=== PATIENT | female | born 1970 | race Caucasian/White ===

== ENCOUNTER 2017-01-07 06:31 | Emergency (ER) | payer BC ==
--- NOTE | 2017-01-07 06:54 | Emergency Department Record ---
History of Present Illness - General Chief complaint: ENT Stated complaint: SORE THROAT Time Seen by Provider: 01/07/17 06:45 Source: Patient Mode of Arrival: Ambulatory Limitations: No limitations - History of Present Illness Initial comments: The patient is here due to a one day hx of a ST. She states it was scratchy yesterday but got worse this morning. She is concerned she may have Strep. The patient denies any fever, cough, voice changes, ROGERS, or ear pain. MD complaint: Sore throat Onset/Timin -: Days(s) Location: Throat Quality: Aching Consistency: Constant Improves with: None Worsens with: Swallowing Associated Symptoms: Sore throat - Related Data Allergies Allergy/AdvReac Type Severity Reaction Status Date / Time bee pollen Allergy Severe HIVES Unverified 12/25/16 08:24 iodine Allergy Severe HIVES Unverified 12/25/16 08:24 shellfish derived Allergy Severe HIVES Unverified 12/25/16 08:24 onion Allergy Intermediate HIVES Unverified 12/25/16 08:24 Travel Screening - Travel/Exposure Within Last 30 Days Have you traveled within the last 30 days?: No Review of Systems Constitutional: Denies: Chills, Fever Past Medical History - SOCIAL HISTORY Smoking Status: Never smoker Alcohol Use: Rare Drug Use: None - RESPIRATORY Hx Respiratory Disorders: Yes Hx Asthma: Yes - CARDIOVASCULAR Hx Cardio Disorders: Yes Hx Heart Attack: Yes Comment:: Murmur - NEURO Hx Neuro Disorders: No - GI Hx GI Disorders: Yes Comment:: Esophageal Ulcers - Hx Genitourinary Disorders: No - ENDOCRINE Hx Endocrine Disorders: Yes Hx Diabetes: Yes (DM2) - MUSCULOSKELETAL Hx Musculoskeletal Disorders: No - PSYCH Hx Psych Problems: Yes Hx Anxiety: Yes Hx Depression: Yes - HEMATOLOGY/ONCOLOGY Hx Hematology/Oncology Disorders: Yes Hx Cancer: Yes (Uterine) Hx Chemotherapy: No Hx Radiation Therapy: No Family Medical History Any Significant Family History?: Yes Hx Cancer: Mother Hx Diabetes: Mother Physical Exam - General General Appearance: Alert, Oriented x3, Cooperative, No acute distress - Head Head exam: Atraumatic, Normocephalic, Normal inspection - Eye Eye exam: Normal appearance, PERRL - ENT Throat exam: Tonsillar erythema. negative: Normal inspection, Tonsillomegaly, Tonsillar exudate, R peritonsillar mass, L peritonsillar mass - Neck Neck exam: Normal inspection, Full ROM. negative: Lymphadenopathy, Meningismus , Tenderness - Respiratory Respiratory exam: Normal lung sounds bilaterally. negative: Respiratory distress - Cardiovascular Cardiovascular Exam: Regular rate, Normal rhythm, Normal heart sounds Course Vital Signs 01/07/17 06:35 Temperature 98.8 F Pulse Rate [ 93 H Pulse Ox Probe] Respiratory 16 Rate Blood Pressure 157/106 [Left Arm] Pulse Ox 97 - Reevaluation(s) Reevaluation #1: I explained to the patient it appears she has a viral sore throat. She is to use Tylenol for pain and see her PCP if not better in 2 days. 01/07/17 06:52 01/07/17 07:10 Medical Decision Making - Data Complexity MDM Data: Labs Ordered and/or Reviewed (Strep: Neg.) - Lab Data Lab Results 01/07/17 Range/Units 06:34 Group A Strep Screen Negative (NEGATIVE) Disposition Disposition: Discharge Clinical Impression: Viral pharyngitis Disposition: Home, Self-Care Condition: (1) Good Instructions: Pharyngitis (ED) Additional Instructions: Please use Tylenol for pain. Please see your PCP if not better in 1-2 days. Return to the ER if worse. Please also F/U with your PCP to recheck your blood pressure. Please take Benadryl for swelling also if needed. Forms: Patient Portal Access Time of Disposition: 06:54 Quality - Quality Measures Quality Measures: N/A - Blood Pressure Screening View Details: Yes Does Patient Have Any of the Following: No Blood Pressure Classification: Hypertensive Reading Systolic Measurement: 157 Diastolic Measurement: 106 Screening for High Blood Pressure: < Pre-Hypertensive BP, F/U Documented > [ G8950] Pre-Hypertensive Follow-up Interventions: Referral to alternative/primary care provider.
[2017-01-07] MEDS: ACETAMINOPHEN 325 MG TAB PO ONE (07:02)
== END 2017-01-07 07:05 | disposition home or self-care (01) ==
LOC: ER 06:31
DX: J02.9 Acute pharyngitis, unspecified (principal)
CPT/HCPCS: 87880; 99282

== ENCOUNTER 2017-01-18 07:56 | Day surgery (SDC) | payer BC ==
[2017-01-18] MEDS ORDERED: LIDOCAINE 2% MDV (20MG/ML) 20ML VIAL IV ONE (14:00)
[2017-01-18] MEDS ORDERED: PROPOFOL 10 MG/ML VIAL IV ONE (14:00)
[2017-01-18] MEDS ORDERED: FENTANYL PF 100MCG/2ML VIAL IV ONE (14:00)
--- NOTE | 2017-01-23 17:31 | Operative Note ---
DATE OF SURGERY: 01/18/2017 OPERATION: ESOPHAGOGASTRODUODENOSCOPY with photo. PREOPERATIVE DIAGNOSIS: Chronic heartburn. POSTOPERATIVE DIAGNOSES: 1. GE junction erosion. 2. Moderate retained liquid in the stomach, rule out gastroparesis. PROCEDURE: After informed consent was obtained from the patient, she was placed in the left lateral decubitus position in the endoscopy suite, sedated and monitored by the department of anesthesia. A well-lubricated ARC400 gastroscope was placed in the posterior oropharynx and under direct visualization passed to the proximal esophagus. The endoscope was advanced through the proximal, mid, and distal esophagus. The GE junction demonstrated a small erosion. The remainder of the esophagus was normal. There was greater than the expected amount of retained bile and acid in the gastric fundus. There was a small amount of debris noted as well. The gastric body and antrum as well as the pylorus, duodenal bulb, and sweep were unremarkable. J-turn views of the proximal stomach were unremarkable. The endoscope was then straightened and retracted from the patient with no new findings or abnormalities identified. RECOMMENDATIONS: I will have the patient continue her current b.i.d. proton pump inhibitor. I will check a gastric emptying study to determine if there is any evidence of gastric dysmotility which may be responsible for some of her reflux symptoms. As always, thank you for allowing me to participate in the healthcare of your patients. CC: Dr. Boyer at cardiology in [facility] [place]
== END 2017-01-18 10:14 | disposition home or self-care (01) ==
LOC: HOP 07:56
PROVIDERS: ATTEND Internal Medicine Gastroenterology
DX: K22.10 Ulcer of esophagus without bleeding (principal); R12 Heartburn; E11.9 Type 2 diabetes mellitus without complications; E78.00 Pure hypercholesterolemia, unspecified
CPT/HCPCS: 43235; 00740; J3010

== ENCOUNTER 2018-08-14 16:47 | Emergency (ER) | payer BC ==
[2018-08-14] MEDS ORDERED: HUMULIN R 100 UNIT/ML VIAL IV ONE (17:03)
[2018-08-14] MEDS ORDERED: HUMULIN R 100 UNIT/ML VIAL SC ONE (17:15)
[2018-08-14 17:22] LABS: BASO % 0.8 % (0-6); EOS % 3.1 % (0-6); HEMATOCRIT 42.8 % (35.0-47.0); HEMOGLOBIN 14.9 gm/dl (11.6-16.0); LYMPH % 27.1 % (16-45); MEAN CELL VOLUME 83.9 fl (81-97); MEAN CORPUSCULAR HEMOGLOBIN 29.2 pg (27-33); MEAN CORPUSCULAR HGB CONC 34.8 g/dl (32-36); MEAN PLATELET VOLUME 10.7 fl (7.4-10.4); PLATELET COUNT 294 K/uL (130-400); RED CELL DISTRIBUTION WIDTH 12.7 % (11.5-14.5); WHITE BLOOD COUNT W/O DIFF 7.5 K/uL (4.2-12.2)
--- NOTE | 2018-08-14 17:35 | Emergency Department Record ---
History of Present Illness - General Chief complaint: Hypergylcemia Stated complaint: HIGH BLOOD SUGAR Time Seen by Provider: 08/14/18 16:56 Source: Patient, RN notes reviewed Mode of Arrival: Wheelchair - History of Present Illness Initial comments: patient has numbness in the left hand and patient to ready care and blood sugar checked and it was over 500 and she uses insulin 40 units at night and no vomiting and her neck hurts on the left side of her neck. [employer] is equal bilaterally. No drift of leg weakness. Onset/Timin -: Week(s) - [place] Coma Scale Eye Response: (4) Open spontaneously Motor Response: (6) Obeys commands Verbal Response: (5) Oriented [place] Total: 15 - Related Data Allergies Allergy/AdvReac Type Severity Reaction Status Date / Time bee pollen Allergy Severe HIVES Unverified 08/14/18 16:11 iodine Allergy Severe HIVES Unverified 08/14/18 16:11 shellfish derived Allergy Severe HIVES Unverified 08/14/18 16:11 cat dander Allergy Intermediate SWOLLEN Unverified 08/14/18 16:11 EYES onion Allergy Intermediate HIVES Unverified 08/14/18 16:11 lopez vinayak Allergy Mild PT UNSURE Uncoded 08/14/18 16:52 OF REACTION Travel Screening - Travel/Exposure Within Last 30 Days Have you traveled within the last 30 days?: No - Travel/Exposure Within Last Year Have you traveled outside the [place] in the last year?: No - Additonal Travel Details Have you been exposed to anyone with a communicable illness?: No - Travel Symptoms Symptom Screening: None Review of Systems Reviewed: No additional complaints except as noted below Constitutional: Reports: As per HPI. Denies: Chills, Fever, Malaise, Night sweats, Weakness, Weight change Eyes: Reports: As per HPI. Denies: Eye discharge, Eye pain, Photophobia, Vision change ENT: Reports: As per HPI. Denies: Congestion, Dental pain, Ear pain, Epistaxis , Hearing loss, Throat pain Respiratory: Reports: As per HPI. Denies: Cough, Dyspnea, Hemoptysis, Stridor, Wheezes Cardiovascular: Reports: As per HPI. Denies: Arrhythmia, Chest pain, Dyspnea on exertion, Edema, Murmurs, Orthopnea, Palpitations, Paroxysmal nocturnal dyspnea, Rheumatic Fever, Syncope Endocrine: Reports: As per HPI. Denies: Fatigue, Heat or cold intolerance, Polydipsia, Polyuria Gastrointestinal: Reports: As per HPI. Denies: Abdominal pain, Constipation, Diarrhea, Hematemesis, Hematochezia, Melena, Nausea, Vomiting Genitourinary: Reports: As per HPI. Denies: Abnormal menses, Discharge, Dyspareunia, Dysuria, Frequency, Hematuria, Incontinence, Retention, Urgency Musculoskeletal: Reports: As per HPI. Denies: Arthralgia, Back pain, Gout, Joint swelling, Myalgia, Neck pain Skin: Reports: As per HPI. Denies: Bruising, Change in color, Change in hair/ nails, Lesions, Pruritus, Rash Neurological: Reports: As per HPI, Numbness (left hand, she also has chronic leg numbness because of her diabetes). Denies: Abnormal gait, Confusion, Headache, Paresthesias, Seizure, Tingling, Tremors, Vertigo, Weakness Psychiatric: Reports: As per HPI. Denies: Anxiety, Auditory hallucinations, Depression, Homicidal thoughts, Suicidal thoughts, Visual hallucinations Hematological/Lymphatic: Reports: As per HPI. Denies: Anemia, Blood Clots, Easy bleeding, Easy bruising, Swollen glands Past Medical History - SOCIAL HISTORY Smoking Status: Never smoker Alcohol Use: Rare Drug Use: None - RESPIRATORY Hx Respiratory Disorders: Yes Hx Asthma: Yes - CARDIOVASCULAR Hx Cardio Disorders: Yes Hx Heart Attack: Yes Comment:: Murmur - NEURO Hx Neuro Disorders: No - GI Hx GI Disorders: Yes Comment:: Esophageal Ulcers - Hx Genitourinary Disorders: No - ENDOCRINE Hx Endocrine Disorders: Yes Hx Diabetes: Yes (DM2) - MUSCULOSKELETAL Hx Musculoskeletal Disorders: No - PSYCH Hx Psych Problems: Yes Hx Anxiety: Yes Hx Depression: Yes - HEMATOLOGY/ONCOLOGY Hx Hematology/Oncology Disorders: Yes Hx Cancer: Yes (Uterine) Hx Chemotherapy: No Hx Radiation Therapy: No Family Medical History Any Significant Family History?: Yes Hx Cancer: Mother Hx Diabetes: Mother Physical Exam - General General Appearance: Alert, Oriented x3, Cooperative, No acute distress - Head Head exam: Normal inspection - Eye Eye exam: Normal appearance, PERRL Pupils: Normal accommodation - ENT ENT exam: Normal exam, Mucous membranes moist, Normal external ear exam, Normal orophraynx, TM's normal bilaterally Ear exam: Normal external inspection. negative: External canal tenderness Nasal Exam: Normal inspection. negative: Discharge, Sinus tenderness Mouth exam: Normal external inspection, Tongue normal Teeth exam: Normal inspection. negative: Dental caries Throat exam: Normal inspection. negative: Tonsillar erythema, Tonsillar exudate - Neck Neck exam: Normal inspection, Full ROM. negative: Tenderness - Respiratory Respiratory exam: Normal lung sounds bilaterally. negative: Respiratory distress - Cardiovascular Cardiovascular Exam: Regular rate, Normal rhythm, Normal heart sounds - GI/Abdominal GI/Abdominal exam: Soft, Normal bowel sounds. negative: Tenderness - Rectal Rectal exam: Deferred - exam: Deferred - Extremities Extremities exam: Normal inspection, Full ROM, Normal capillary refill. negative: Tenderness - Back Back exam: Reports: Normal inspection, Full ROM. Denies: Muscle spasm, Rash noted, Tenderness - Neurological Neurological exam: Alert, Normal gait, Oriented X3, Reflexes normal - Psychiatric Psychiatric exam: Normal affect, Normal mood - Skin Skin exam: Dry, Intact, Normal color, Warm Course Vital Signs 08/14/18 16:55 Temperature 98.1 F Pulse Rate 80 Respiratory 20 Rate Blood Pressure 152/87 Pulse Ox 96 Medical Decision Making - Data Complexity MDM Data: Labs Ordered and/or Reviewed (glucose 555 , acetone negative), X-Ray Ordered and/or Reviewed (ct head negative) - Lab Data Result diagrams: 08/14/18 16:55 08/14/18 16:55 Lab Results 08/14/18 Range/Units 16:55 WBC 7.5 (4.2-12.2) K/uL RBC 5.10 (3.80-5.40) M/uL Hgb 14.9 (11.6-16.0) gm/dl Hct 42.8 (35.0-47.0) % MCV 83.9 (81-97) fl MCH 29.2 (27-33) pg MCHC 34.8 (32-36) g/dl RDW 12.7 (11.5-14.5) % Plt Count 294 (130-400) K/uL MPV 10.7 H (7.4-10.4) fl Gran % 62.0 (47-80) % Lymphocytes % 27.1 (16-45) % Monocytes % 7.0 (0-9) % Eosinophils % 3.1 (0-6) % Basophils % 0.8 (0-6) % Disposition Clinical Impression: Hyperglycemia, Diabetes Cervical strain, acute Qualifiers: Encounter type: initial encounter Qualified Code(s): S16.1XXA - Strain of muscle, fascia and tendon at neck level, initial encounter Radiculopathy Qualifiers: Spinal region: cervical Qualified Code(s): M54.12 - Radiculopathy, cervical region Disposition: Home, Self-Care Condition: (1) Good Instructions: Cervical Strain (ED), Cervical Radiculopathy (ED) Additional Instructions: increase insulin by 5 units tomorrow motrin 400 mg three times a day for one week follow up with family provider in 2 to 6 days low heat to neck three times a daytoday check glucose twice a day and write it down off work Forms: Patient Portal Access Time of Disposition: 17:40 Quality - Quality Measures Quality Measures: N/A - Blood Pressure Screening Does Patient Have Any of the Following: No Blood Pressure Classification: Pre-Hypertensive BP Reading Systolic Measurement: 152 Diastolic Measurement: 87 Screening for High Blood Pressure: < Pre-Hypertensive BP, F/U Documented > [ G8950] Pre-Hypertensive Follow-up Interventions: Referral to alternative/primary care provider.
[2018-08-14 17:39] LABS: BLOOD UREA NITROGEN 13 mg/dL (6-20); CREATININE 0.8 mg/dL (0.5-0.9); EST GLOMERULAR FILTRATION RATE > 60 mL/min
[2018-08-14 17:40] LABS: TOTAL PROTEIN 7.3 g/dL (6.6-8.7)
[2018-08-14 17:44] LABS: ALBUMIN 4.1 g/dL (4.0-5.0); ALKALINE PHOSPHATASE 100 U/L (35-104); ALT/SGPT 28 U/L (<33); AST/SGOT 17 U/L (10.0-35.0)
[2018-08-14 17:50] LABS: ACETONE,SERUM NEGATIVE (NEGATIVE)
[2018-08-14 17:55] LABS: ALB/GLOB RATIO 1.3 (1.1-1.8); GLUCOSE,RANDOM 555 mg/dL (74-109)
[2018-08-14 18:16] LABS: URINE APPEARANCE CLEAR; URINE BILIRUBIN NEGATIVE (NEGATIVE); URINE BLOOD NEGATIVE (NEGATIVE); URINE COLOR YELLOW; URINE KETONE NEGATIVE (NEGATIVE); URINE LEUKOCYTE ESTERASE NEGATIVE (NEGATIVE); URINE NITRITE NEGATIVE (NEGATIVE); URINE PROTEIN NEGATIVE (NEGATIVE); URINE UROBILINOGEN 0.2 E.U./dL (0.20 - 1.00)
[2018-08-14 18:17] LABS: URINE GLUCOSE (UA) >=1000 mg/dL (NEGATIVE)
--- NOTE | 2018-08-16 12:35 | CT SCAN REPORT ---
EXAM: CT OF THE HEAD WITHOUT CONTRAST HISTORY: NUMBNESS IN THE LEFT HAND TIMES ONE WEEK. TECHNIQUE: Noncontrast CT of the head was obtained. FINDINGS: The brain volume is normal. There is no hemorrhage, mass effect, midline shift or acute transcortical infarction. No extraaxial fluid collections are seen. The ventricles and basal cisterns are preserved. IMPRESSION: NORMAL CT SCAN OF THE BRAIN. JOB NUMBER: [id number] MTDD
== END 2018-08-14 19:11 | disposition home or self-care (01) ==
LOC: ER 16:47
DX: S16.1XXA Strain of muscle, fascia and tendon at neck level, initial encounter (principal); M54.12 Radiculopathy, cervical region; E11.65 Type 2 diabetes mellitus with hyperglycemia; X58.XXXA Exposure to other specified factors, initial encounter; Z79.4 Long term (current) use of insulin; I25.2 Old myocardial infarction; F17.210 Nicotine dependence, cigarettes, uncomplicated
CPT/HCPCS: 99284 ×2; 96374; 85025; 85730; 80053; 36416; 82009; 82948; 81003; 84484; 70450; 93005; 93010; J1815

== ENCOUNTER 2018-11-13 14:10 | Emergency (ER) | payer BC ==
--- NOTE | 2018-11-13 16:10 | Emergency Department Record ---
History of Present Illness - General Chief complaint: Abscess Stated complaint: GROWTH ON GROIN Time Seen by Provider: 11/13/18 16:06 Mode of Arrival: Ambulatory - History of Present Illness Initial comments: patient has an abscess and seen by [facility] [place] and sent to [facility] and she didn't have all the right equipment and sent back to ED MD complaint: Abscess/boil Onset/Timin -: Days(s) Severity scale (1-10): 7 Quality: Sharp Consistency: Constant Improves with: Immobilization Worsens with: Movement Context: None Associated symptoms: Denies other symptoms Treatments Prior to Arrival: Antibiotic - Related Data Previous Rx's Medication Instructions Recorded Cephalexin [Keflex] 500 mg PO QID #40 cap 11/13/18 Hydrocodone/Acetaminophen [Aurora 1 each PO Q4HR #18 tablet 11/13/18 5-325 Tablet] Allergies Allergy/AdvReac Type Severity Reaction Status Date / Time bee pollen Allergy Severe HIVES Unverified 11/13/18 13:06 iodine Allergy Severe HIVES Unverified 11/13/18 13:06 shellfish derived Allergy Severe HIVES Unverified 11/13/18 13:06 cat dander Allergy Intermediate SWOLLEN Unverified 11/13/18 13:06 EYES onion Allergy Intermediate HIVES Unverified 11/13/18 13:06 lopez vinayak Allergy Mild PT UNSURE Uncoded 08/14/18 16:52 OF REACTION Travel Screening - Travel/Exposure Within Last 30 Days Have you traveled within the last 30 days?: No Review of Systems Reviewed: No additional complaints except as noted below Constitutional: Reports: As per HPI. Denies: Chills, Fever, Malaise, Night sweats, Weakness, Weight change Eyes: Reports: As per HPI. Denies: Eye discharge, Eye pain, Photophobia, Vision change ENT: Reports: As per HPI. Denies: Congestion, Dental pain, Ear pain, Epistaxis, Hearing loss, Throat pain Respiratory: Reports: As per HPI. Denies: Cough, Dyspnea, Hemoptysis, Stridor, Wheezes Cardiovascular: Reports: As per HPI. Denies: Arrhythmia, Chest pain, Dyspnea on exertion, Edema, Murmurs, Orthopnea, Palpitations, Paroxysmal nocturnal dyspnea, Rheumatic Fever, Syncope Endocrine: Reports: As per HPI. Denies: Fatigue, Heat or cold intolerance, Polydipsia, Polyuria Gastrointestinal: Reports: As per HPI. Denies: Abdominal pain, Constipation, Diarrhea, Hematemesis, Hematochezia, Melena, Nausea, Vomiting Genitourinary: Reports: As per HPI, Other (left groin). Denies: Abnormal menses, Discharge, Dyspareunia, Dysuria, Frequency, Hematuria, Incontinence, Retention, Urgency Musculoskeletal: Reports: As per HPI. Denies: Arthralgia, Back pain, Gout, Joint swelling, Myalgia, Neck pain Skin: Reports: As per HPI. Denies: Bruising, Change in color, Change in hair/nails, Lesions, Pruritus, Rash Neurological: Reports: As per HPI. Denies: Abnormal gait, Confusion, Headache, Numbness, Paresthesias, Seizure, Tingling, Tremors, Vertigo, Weakness Psychiatric: Reports: As per HPI. Denies: Anxiety, Auditory hallucinations, Depression, Homicidal thoughts, Suicidal thoughts, Visual hallucinations Hematological/Lymphatic: Reports: As per HPI. Denies: Anemia, Blood Clots, Easy bleeding, Easy bruising, Swollen glands Past Medical History - SOCIAL HISTORY Smoking Status: Former smoker - RESPIRATORY Hx Respiratory Disorders: Yes Hx Asthma: Yes - CARDIOVASCULAR Hx Cardio Disorders: Yes Hx Heart Attack: Yes Comment:: Murmur - NEURO Hx Neuro Disorders: No - GI Hx GI Disorders: Yes Comment:: Esophageal Ulcers - Hx Genitourinary Disorders: No - ENDOCRINE Hx Endocrine Disorders: Yes Hx Diabetes: Yes (DM2) - MUSCULOSKELETAL Hx Musculoskeletal Disorders: No - PSYCH Hx Psych Problems: Yes Hx Anxiety: Yes Hx Depression: Yes - HEMATOLOGY/ONCOLOGY Hx Hematology/Oncology Disorders: Yes Hx Cancer: Yes (Uterine) Hx Chemotherapy: No Hx Radiation Therapy: No Family Medical History Any Significant Family History?: Yes Hx Cancer: Mother Hx Diabetes: Mother Physical Exam - General General Appearance: Alert, Oriented x3, Cooperative, No acute distress - Head Head exam: Normal inspection - Eye Eye exam: Normal appearance, PERRL Pupils: Normal accommodation - ENT ENT exam: Normal exam, Mucous membranes moist, Normal external ear exam, Normal orophraynx, TM's normal bilaterally Ear exam: Normal external inspection. negative: External canal tenderness Nasal Exam: Normal inspection. negative: Discharge, Sinus tenderness Mouth exam: Normal external inspection, Tongue normal Teeth exam: Normal inspection. negative: Dental caries Throat exam: Normal inspection. negative: Tonsillar erythema, Tonsillar exudate - Neck Neck exam: Normal inspection, Full ROM. negative: Tenderness - Respiratory Respiratory exam: Normal lung sounds bilaterally. negative: Respiratory distress - Cardiovascular Cardiovascular Exam: Regular rate, Normal rhythm, Normal heart sounds - GI/Abdominal GI/Abdominal exam: Soft, Normal bowel sounds, Tenderness (left groin abscess) - Rectal Rectal exam: Deferred - exam: Deferred - Extremities Extremities exam: Normal inspection, Full ROM, Normal capillary refill. negative: Tenderness - Back Back exam: Reports: Normal inspection, Full ROM. Denies: Muscle spasm, Rash noted, Tenderness - Neurological Neurological exam: Alert, Normal gait, Oriented X3, Reflexes normal - Psychiatric Psychiatric exam: Normal affect, Normal mood - Skin Skin exam: Dry, Intact, Normal color, Warm Course Vital Signs 11/13/18 14:47 Temperature 98.9 F Pulse Rate 103 H Respiratory 20 Rate Blood Pressure 144/88 Pulse Ox 99 - Reevaluation(s) Reevaluation #1: incision and drainage of the left thigh upper left groin area cleaned with shurclens anesthesia with lidocaine 1% incision and drainage with scalp 11 lots of purulent material packed with guaze 11/13/18 17:01 Disposition Clinical Impression: Abscess Disposition: Home, Self-Care Condition: (1) Good Instructions: Abscess Incision and Drainage (ED) Additional Instructions: return to ED in two days to remove packing and repack if necessary follow up with primary provider in 2-7 days continue clindamycin till gone add keflex 500 mg four times a day Prescriptions: Hydrocodone/Acetaminophen [Aurora 5-325 Tablet] 1 each PO Q4HR #18 tablet Cephalexin [Keflex] 500 mg PO QID #40 cap Forms: Patient Portal Access Time of Disposition: 17:08 Quality - Quality Measures Quality Measures: N/A - Blood Pressure Screening Does Patient Have Any of the Following: No Blood Pressure Classification: Pre-Hypertensive BP Reading Systolic Measurement: 144 Diastolic Measurement: 88 Screening for High Blood Pressure: < Pre-Hypertensive BP, F/U Documented > [G8950] Pre-Hypertensive Follow-up Interventions: Referral to alternative/primary care provider.
== END 2018-11-13 17:21 | disposition home or self-care (01) ==
LOC: ER 14:10
DX: L02.214 Cutaneous abscess of groin (principal); E11.9 Type 2 diabetes mellitus without complications; I10 Essential (primary) hypertension; Z87.891 Personal history of nicotine dependence
CPT/HCPCS: 10060; 99284

== ENCOUNTER 2018-11-15 07:42 | Emergency (ER) | payer BC ==
[2018-11-15] MEDS ORDERED: FLUCONAZOLE 100 MG TABLET PO ONE (07:55)
--- NOTE | 2018-11-15 07:55 | Emergency Department Record ---
History of Present Illness - General Stated Complaint: PACKING CHANGE/ABCESS Time Seen by Provider: 11/15/18 07:43 Source: Patient Mode of arrival: Ambulatory Limitations: No limitations - History of Present Illness Initial Comments: 48 yo female presents for an abscess recheck. She was seen on 11/13/18. She had and I and D at that time with packing placement. She reports significant improvement. Pain is controlled. Some mild continued drainage. She has a non painful rash in the right groin Complaint: Wound re-check -: Days(s) (2) Initial Visit For: Abscess Returns Today for: Wound recheck - Related Data Previous Rx's Medication Instructions Recorded Cephalexin [Keflex] 500 mg PO QID #40 cap 11/13/18 Hydrocodone/Acetaminophen [[place] 1 each PO Q4HR #18 tablet 11/13/18 5-325 Tablet] Clotrimazole [Antifungal] 30 gm TP BID #1 cream..g. 11/15/18 Fluconazole [Diflucan] 150 mg PO ONCE #1 tab 11/15/18 Allergies Allergy/AdvReac Type Severity Reaction Status Date / Time bee pollen Allergy Severe HIVES Unverified 11/15/18 07:54 iodine Allergy Severe HIVES Unverified 11/15/18 07:54 shellfish derived Allergy Severe HIVES Unverified 11/15/18 07:54 cat dander Allergy Intermediate SWOLLEN Unverified 11/15/18 07:54 EYES onion Allergy Intermediate HIVES Unverified 11/15/18 07:54 lopez vinayak Allergy Mild PT UNSURE Uncoded 11/15/18 07:54 OF REACTION Review of Systems Constitutional: Denies: Chills, Fever, Malaise, Weakness Eyes: Denies: Eye discharge ENT: Denies: Congestion, Throat pain Respiratory: Denies: Cough Cardiovascular: Denies: Chest pain, Syncope Endocrine: Denies: Fatigue Gastrointestinal: Denies: Abdominal pain, Diarrhea, Nausea, Vomiting Genitourinary: Denies: Dysuria, Urgency Musculoskeletal: Denies: Arthralgia, Back pain, Myalgia Skin: Denies: Bruising, Change in color, Rash Neurological: Denies: Headache Psychiatric: Denies: Anxiety Hematological/Lymphatic: Denies: Easy bruising Past Medical History - SOCIAL HISTORY Smoking Status: Former smoker - RESPIRATORY Hx Respiratory Disorders: Yes Hx Asthma: Yes - CARDIOVASCULAR Hx Cardio Disorders: Yes Hx Heart Attack: Yes Comment:: Murmur - NEURO Hx Neuro Disorders: No - GI Hx GI Disorders: Yes Comment:: Esophageal Ulcers - Hx Genitourinary Disorders: No - ENDOCRINE Hx Endocrine Disorders: Yes Hx Diabetes: Yes (DM2) - MUSCULOSKELETAL Hx Musculoskeletal Disorders: No - PSYCH Hx Psych Problems: Yes Hx Anxiety: Yes Hx Depression: Yes - HEMATOLOGY/ONCOLOGY Hx Hematology/Oncology Disorders: Yes Hx Cancer: Yes (Uterine) Hx Chemotherapy: No Hx Radiation Therapy: No Family Medical History Hx Cancer: Mother Hx Diabetes: Mother Physical Exam - General General Appearance: Alert, Oriented x3, Cooperative, No acute distress Limitations: No limitations - Head Head exam: Atraumatic, Normal inspection - Eye Eye exam: Normal appearance. negative: Conjunctival injection - ENT ENT exam: Normal exam Ear exam: Normal external inspection Nasal Exam: Normal inspection Mouth exam: Normal external inspection - Neck Neck exam: Normal inspection - Cardiovascular Cardiovascular Exam: Regular rate - GI/Abdominal GI/Abdominal exam: Soft - exam: Other (healing draining left groin abscess with minimal erythema, right superficial slightly scaley rash most consistent with tinea, non tender without signs of R sided abscess) - Neurological Neurological exam: Alert, Oriented X3 - Psychiatric Psychiatric exam: Normal affect, Normal mood - Skin Type of lesion: Abscess Course - Reevaluation(s) Reevaluation #1: The EMR reviewed. Left groin I and D. 11/15/18 07:47 11/15/18 07:58 The abscess was rechecked It has significantly improved with some small amount of continued drainage The packing was removed, cavity irrigated and packing replaced for 2 more days She has a superficial right groin rash consistent with tinea corporis. Rx provided for this as well She has pain medication at home Disposition Disposition: Discharge Clinical Impression: Abscess, Tinea cruris Disposition: Home, Self-Care Condition: (1) Good Instructions: Tinea Corporis (ED), Abscess (ED) Additional Instructions: Return on Sunday to have the remaining packing removed Return sooner if worse, fever, pain, swelling Repeat the Diflucan in one week Follow up this next week with your doctor Prescriptions: Clotrimazole [Antifungal] 30 gm TP BID #1 cream..g. Fluconazole [Diflucan] 150 mg PO ONCE #1 tab Forms: Patient Portal Access Time of Disposition: 07:58 Quality - Quality Measures Quality Measures: N/A - Blood Pressure Screening Does Patient Have Any of the Following: No Blood Pressure Classification: Hypertensive Reading Systolic Measurement: 159 Diastolic Measurement: 109 Screening for High Blood Pressure: < Pre-Hypertensive BP, F/U Documented > [G8950] Pre-Hypertensive Follow-up Interventions: Referral to alternative/primary care provider.
== END 2018-11-15 08:25 | disposition home or self-care (01) ==
LOC: ER 07:42
DX: L02.214 Cutaneous abscess of groin (principal); B35.6 Tinea cruris
CPT/HCPCS: 10060; 99284